=== PATIENT | male | born 1990 | race Caucasian/White ===

== ENCOUNTER 2024-03-18 13:27 | Outpatient (CLI) | payer SELFPAY ==
--- NOTE | 2024-03-18 13:45 | MR_ITS ---
WS: [id number] MRI LUMBAR SPINE NONCONTRAST HISTORY: M54.9 - Dorsalgia, unspecified COMPARISON: None available. TECHNIQUE: Sagittal and axial multisequence imaging is submitted. Straightening of the normal lumbar lordosis. 2 mm retrolisthesis of L4. Disc base desiccation without narrowing at L4-5 and L5-S1. No fractures or marrow edema. Conus terminates normally at L1-2 disc level. L1-L2: Normal. L2-L3: Normal. L3-L4: Mild disc bulging. Mild ligamentum flavum and facet arthritis. Mild foraminal narrowing. L4-L5: Mild annular disc bulging with a large central disc protrusion extending into the subarticular recesses. There is contact on the traversing L5 nerve roots, RIGHT greater than LEFT. Displacement o f the thecal sac. Central and bilateral subarticular recess and foraminal stenosis. L5-S1: Mild annular disc bulging with a shallow central disc protrusion. Bilateral facet joint arthri tis. Fluid in the facet joints. Mild bilateral foraminal stenosis. Paravertebral soft tissues are normal. MR/MR lumbar spine wo con* [id number] IMPRESSION: 1. L4-5: Large central disc protrusion extending into the subarticular recesse s. Central, bilateral subarticular recess and foraminal stenosis. Significant d isc contact on the traversing L5 nerve roots, RIGHT greater than LEFT. 2. L5-S1: Mild bilateral foraminal stenosis with a shallow central disc protru nereyda. 3. L3-4: Mild foraminal narrowing.
[2024-03-18] MEDS: gadobenate dimeglumine 20 mL vial 13 ML IV (14:00)
== END 2024-03-18 13:28 | disposition home or self-care (01) ==
LOC: RAD 13:29
PROVIDERS: Family Provider Nurse Practitioner; PCP Clinical Nurse Specialist Adult Health; Visit Provider Clinical Nurse Specialist Adult Health
DX: M54.16 Radiculopathy, lumbar region (principal); M47.896 Other spondylosis, lumbar region
CPT/HCPCS: 72148